=== PATIENT | female | born 1955 | race American Indian/Alaskan Native ===

== ENCOUNTER 2021-05-23 18:08 | Emergency (ER) | payer OTHER ==
[~2021-05-23] VITALS: Ht 144.8 cm; Wt 89.8 kg
[2021-05-23 18:15] VITALS: BP_SYST 90
--- NOTE | 2021-05-23 18:15 | NUR ---
Patient to ER bed 7 to gown for evaluation. Side rails up. Report given to ALISSA MAYA.
--- NOTE | 2021-05-23 18:18 | NUR ---
LUIS TO ASSUME CARE, CALM, ALERT, RESP UNLABORED, COMMUNICATES CLEARLY IN FULL COMPLETE SENTECES
[2021-05-23] MEDS ORDERED: NACL 0.9% 1,000 ML IV ONE (18:30)
--- NOTE | 2021-05-23 18:30 | NUR ---
DR SIMS AT BEDSIDE
--- NOTE | 2021-05-23 18:45 | NUR ---
EKG, CXT, CT HEAD COMPLETED, TOLERATED WELL
--- NOTE | 2021-05-23 19:40 | NUR ---
UP AMBLATING STEADY, NO DYSPNEA, STEADY GAIT
[2021-05-23 19:41] LABS: BASOPHILS # (AUTO) 0.1 K/uL (0.0-0.2); BASOPHILS % (AUTO) 0.8 % (0.0-2.0); EOSINOPHILS # (AUTO) 0.2 K/uL (0.0-0.4); EOSINOPHILS % (AUTO) 2.6 % (0.0-4.0); HEMATOCRIT 33.1 % (36-48); HEMOGLOBIN 10.7 g/dL (12.0-16.0); LYMPHOCYTES % (AUTO) 29.7 % (20.5-51.5); MEAN CORPUSCULAR HEMOGLOBIN 29 pg (27-31); MEAN CORPUSCULAR HGB CONC 32 % (32-36); MEAN CORPUSCULAR VOLUME 91 fL (79.0-98.0); MONOCYTES # (AUTO) 0.5 K/uL (0.0-1.0); MONOCYTES % (AUTO) 8.1 % (1.7-9.3); NEUTROPHILS % (AUTO) 58.8 % (40.0-70.0); PLATELET COUNT (AUTO) 177 K/uL (130-430); RED BLOOD CELL COUNT(AUTO) 3.64 MIL/uL (4.2-6.2); RED CELL DISTRIBUTION WIDTH 15.3 % (9.0-15.0); WHITE BLOOD COUNT (AUTO) 6.8 K/uL (4.8-10.8)
[2021-05-23 19:49] LABS: ANION GAP 10 (5-15); CALCIUM 9.1 mg/dL (8.4-11.0); CHLORIDE 104 mmol/L (98-107); GLUCOSE 97 mg/dL (70-99); POTASSIUM 4.7 mmol/L (3.5-5.1); SODIUM SERUM 138 mmol/L (136-145); UREA NITROGEN, BLOOD 51 mg/dL (8-21)
[2021-05-23 19:50] LABS: ALANINE AMINOTRANSFERASE 20 U/L (12-78); ALBUMIN 3.6 g/dL (3.4-4.8); ASPARTATE AMINOTRANSFERASE 18 U/L (10-37); CREATININE 1.34 mg/dL (0.55-1.30); TOTAL BILIRUBIN 0.5 mg/dL (0.0-1.0)
--- NOTE | 2021-05-23 19:53 | NUR ---
DR SIMS IN TO REASSESS.
[2021-05-23 19:54] LABS: INR 0.9 (0.8-1.2); PROTHROMBIN TIME 10.1 SECS (9.5-12.5)
[2021-05-23 19:55] LABS: GFR AFRICAN AMERICAN 51 mL/min (>90)
[2021-05-23 20:20] LABS: ACETONE, SERUM NEGATIVE (NEGATIVE)
[2021-05-23 20:28] LABS: BILIRUBIN,URINE NEGATIVE (NEGATIVE); BLOOD, URINE 3+ (NEGATIVE); COLOR,URINE YELLOW (YELLOW); GLUCOSE,URINE NEGATIVE (NEGATIVE); KETONES,URINE NEGATIVE (NEGATIVE); NITRITE, URINE NEGATIVE (NEGATIVE); PROTEIN URINE NEGATIVE (NEGATIVE); UROBILINOGEN,URINE 0.2 (0.2-1.0)
[2021-05-23 20:59] LABS: CLARITY/URINE HAZY (CLEAR); LEUKOCYTE ESTERASE ,URINE TRACE (NEGATIVE)
[2021-05-23 21:02] LABS: BACTERIA,URINE FEW /HPF (None Seen); MUCUS,URINE None Seen /LPF (None Seen)
[2021-05-23 21:24] VITALS: BP_SYST 102
--- NOTE | 2021-05-23 21:25 | NUR ---
Patient given written and verbal discharge instructions and verbalizes understanding. ER MD discussed with patient the results and treatment provided. Patient in stable condition. ID arm band removed. IV catheter removed intact and dressing applied, no active bleeding. Patient educated on pain management and to follow up with PMD. Pain Scale 0/10. Opportunity for questions provided and answered.
== END 2021-05-23 21:24 | disposition home or self-care (01) ==
LOC: SED 18:08
DX: I95.9 Hypotension, unspecified (principal); R42 Dizziness and giddiness; I10 Essential (primary) hypertension; E11.9 Type 2 diabetes mellitus without complications
CPT/HCPCS: 36415; 70450; 71045; 76376; 80053; 81000; 82009; 82550; 83605; 84484; 85025; 85610; 85730; 93005; 96360; 99285; J7030